=== PATIENT | female | born 1990 | race African-American/Black ===

== ENCOUNTER 2017-12-18 09:22 | Emergency (ER) | payer MEDICAID, SELFPAY ==
[2017-12-18 09:23] VITALS: BP 143/75; PULSE 86; RESP 16; TEMP 37.3; O2SAT 97; BMI 47.3
[2017-12-18] MEDS: 0.9% Normal Saline 1,000 ML 1000 ML IV (10:16)
[2017-12-18 10:26] LABS: Pregnancy, Serum, hCG Quali. NEGATIVE Negative (0-9 Nonpreg)
--- NOTE | 2017-12-18 10:52 | ED.DCSUM_ITS ---
- ER Visit Summary Date of Service: 12/18/17 Chief Complaint: Dehydrated History of Present Illness: The patient is a [address] Lock. She reports that she has vomiting and diarrhea that began 2 days ago. She vomited once. No blood or emesis. She had approximately 10 episodes of diarrhea. No blood in her stools or black tarry stools. She reports that she has not had any diarrhea since 8:00 yesterday morning and this is approximately 29 hours. She denies any abdominal pain. Patient denies sick contacts. Has not been camping out of the country. No possible bad food exposure. Does not drink well water. No recent antibiotic use. Patient reports that today she feels lightheaded. It is worse with standing. She has not passed out. She has a headache that is 3 out of 10 in severity. Physical Examination: Vitals: Stable. Afebrile. General: Well-nourished and well-developed. Head: Normocephalic atraumatic. Neck: Supple, no lymphadenopathy. No JVD. Nontender. Cardiovascular: Regular rate and rhythm. No murmurs. Respiratory: No respiratory distress. Clear to auscultation bilaterally. Abdominal: Soft, nontender, nondistended, normal bowel sounds. No guarding, rebound, or peritoneal signs. Back: Nontender. Extremities: Nontender, no edema. Skin: Normal color, no rash. Neurologic: Alert and oriented ?3. Cranial nerves II through XII are intact. Normal strength and sensation. Psych: Normal affect. Test Results: test is negative. Emergency Department Course and Treatment: Patient had an IV placed. She is given a liter bolus of normal saline. She feels much improved. She refused pain or nausea medications. Treatment Plan: Patient will be discharged instructions to push fluids. Follow- up her primary care physician 1 to days not improving. Return to the emergency department for any worsening symptoms. Disposition: To home in improved and stable condition. Impression: 1. Vomiting/diarrhea. This note was generated with [employer] dictation software. It may contain incorrect words, spelling, and punctuation that were not noted in review of the chart prior to signing ED Disposition - Plan for ED Patient: Chief Complaint: Nausea/Vomiting/Diarrhea Instructions: ED Dehydration Referrals: Juarez Lock DO [Primary Care Provider] - 1-2 Days if not improving
[2017-12-18 11:16] VITALS: PULSE 78; RESP 14; O2SAT 99
== END 2017-12-18 11:17 | disposition home or self-care (01) ==
PROVIDERS: Emergency Provider Emergency Medicine; Family Provider Student in an Organized Health Care Education/Training Program; PCP Student in an Organized Health Care Education/Training Program
DX: R19.7 Diarrhea, unspecified (principal); R11.2 Nausea with vomiting, unspecified
CPT/HCPCS: 84703; 96360; 99284; J7030; A4216

== ENCOUNTER 2019-05-19 19:13 | Emergency (ER) | payer SELFPAY ==
[2019-05-19 19:14] VITALS: BP 142/92; PULSE 88; RESP 15; TEMP 36.9; BMI 46.0
--- NOTE | 2019-05-19 20:08 | ED.DCSUM_ITS ---
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 She reports that she has an abscess on her vaginal vagina that began 3 days ago. She is a sharp, aching pain is 9-10 with movement or walking 2 out of 10 at rest. She denies any constitutional symptoms. No fever, chills, nausea, or vomiting. Physical Examination: Vitals: Stable. Afebrile. General: Well-nourished and well-developed. Head: Normocephalic atraumatic. Neck: Supple, no lymphadenopathy. No JVD. Nontender. Cardiovascular: Regular rate and rhythm. No murmurs. Respiratory: No respiratory distress. Clear to auscultation bilaterally. Abdominal: Soft, nontender, nondistended, normal bowel sounds. No guarding, rebound, or peritoneal signs. : Just to the right of her clitoris there is a 2 cm x 1 cm abscess with spontaneous drainage. Back: Nontender. Extremities: Nontender, no edema. Skin: Normal color, no rash. Neurologic: Alert and oriented ?3. Cranial nerves II through XII are intact. Normal strength and sensation. Psych: Normal affect. Emergency Department Course and Treatment: Patient was treated with Bactrim and Percocet. Treatment Plan: The patient was discussed with Dr. Reza. She states that with spontaneous drainage that an I&D should not be performed at this time. Patient's will be discharged Bactrim and instructed to use hot compresses. Follow-up with Dr. Reza in 2 days letter know if this is continuing to drain. If it does not continue to drain she does understand it may require more formal incision and drainage. Return to the emergency department for any worsening symptoms. Disposition: To home in improved and stable condition. Impression: 1. Abscess right labia minora. This note was generated with [employer] dictation software. It may contain incorrect words, spelling, and punctuation that were not noted in review of the chart prior to signing ED Disposition - Plan for ED Patient: Disposition: Home or Assisted Living Instructions: ABSCESS, Antiobiotic Treatment Only Prescriptions: Smz/Tmp Ds [Bactrim Ds] 1 tab PO BID #14 tab Prescription Printed Oxycodone HCl/Acetaminophen [Percocet 5/325] 1 tab PO Q6H PRN PRN 3 Days #12 tab PRN Reason: Pain Prescription Printed Referrals: Jesus Reza [STAFF PHYSICIAN] - 2 Days for wound check
[2019-05-19] MEDS: Smz/Tmp Ds Tablet 1 TABLET PO (20:14)
[2019-05-19] MEDS: oxyCODONE 5 MG Tablet PO (20:14)
== END 2019-05-19 20:18 | disposition home or self-care (01) ==
LOC: ED 20:09
PROVIDERS: Emergency Provider Emergency Medicine
DX: N76.4 Abscess of vulva (principal); E03.9 Hypothyroidism, unspecified; Z79.899 Other long term (current) drug therapy
CPT/HCPCS: 99283

== ENCOUNTER → 2021-02-26 09:51 | Outpatient (CLI) | payer SELFPAY ==
[2021-02-26 10:57] LABS: Thyroid Stim Hormone (TSH) 4.79 uIU/mL (0.358-3.74)
== END ==
DX: R69 Illness, unspecified (principal)
CPT/HCPCS: 36415; 82306; 84443

== ENCOUNTER → 2021-08-18 09:31 | Outpatient (CLI) | payer MEDICAID, SELFPAY ==
[2021-08-18 11:16] LABS: Vitamin D,25 Hydroxy 75.8 ng/mL
[2021-08-18 11:19] LABS: Cholesterol 138 mg/dL (200); High Density Lipoprotein 56 mg/dL; Thyroid Stim Hormone (TSH) 2.47 uIU/mL (0.358-3.74); Triglycerides 85 mg/dL; Very Low Density Lipoprotein 17 mg/dL (5-40)
== END ==
PROVIDERS: Referring Provider Nurse Practitioner Adult Health; Visit Provider Nurse Practitioner Adult Health
DX: E03.9 Hypothyroidism, unspecified (principal)
CPT/HCPCS: 36415; 80061; 82306; 84443

== ENCOUNTER → 2021-09-08 10:40 | Outpatient (CLI) | payer MEDICAID, SELFPAY ==
--- NOTE | 2021-09-08 10:43 | US_ITS ---
STUDY: THYROID ULTRASOUND REASON FOR EXAM: Female, 31 years old. HYPOTHYROIDISM TECHNIQUE: Ultrasound evaluation of the thyroid was performed with real-time and static cardona-scale imaging. COMPARISON: None. FINDINGS: RIGHT LOBE: The right lobe of the thyroid gland measures 4.6 x 1.3 x 1.3 cm. There is a homogeneous echotexture. There are no demonstrated solid, cystic or complex lesions. LEFT LOBE: The left lobe of the thyroid gland measures 4.2 x 1.4 x 1.2 cm. There is a homogeneous echotexture. There are no demonstrated solid, cystic or complex lesions. ISTHMUS: The isthmus measures 0.3 cm. The regional lymph nodes are normal. US/Thyroid IMPRESSION: Normal ultrasound examination of the thyroid. Electronically Signed: Maximo Kay MD at 14:30 EST , Service support ,
--- NOTE | 2021-09-08 10:43 | EKG12_ITS ---
Test Reason : ROUTINE Blood Pressure : / mmHG Vent. Rate : 064 BPM Atrial Rate : 064 BPM P-R Int : 166 ms QRS Dur : 078 ms QT Int : 414 ms P-R-T Axes : 044 034 047 degrees QTc Int : 427 ms Normal sinus rhythm Normal ECG Confirmed by TAMAR SAUCEDA, MARGUERITE ([id number]), editor department CHAYITO REYES ([id number]) on 09/09/2021 9:36:49 AM Referred By: Shraddha Raines Confirmed By:MARGUERITE BOYLE MD
== END ==
PROVIDERS: Referring Provider Nurse Practitioner Adult Health; Visit Provider Nurse Practitioner Adult Health
DX: R00.2 Palpitations (principal)
CPT/HCPCS: 76536; 93005

== ENCOUNTER 2021-12-31 10:23 | Outpatient (CLI) | payer MEDICAID, SELFPAY ==
[2021-12-31 12:16] LABS: ALB/GLOB Ratio 0.8 RATIO (0.9-2.4); AST(SGOT) 14 U/L (15-37); Alanine Aminotransfer ALT/SGPT 16 U/L (13-56); Albumin, Serum 3.6 g/dL (3.2-5.0); Alkaline Phosphatase 73 U/L (45-117); Anion Gap 6 (5-15); BUN 6 mg/dL (7-18); BUN/Creat Ratio 5.4 RATIO (10-20); Calcium,Total 9.1 mg/dL (8.5-10.1); Chloride 106 mmol/L (98-107); Creatinine, Serum 1.11 mg/dL (0.55-1.02); EST Glomerular Filtration Rate 60 mL/min (>60); Est Glom Filt Rate - Afr Amer 73 mL/min (>60); Globulin 4.5 g/dL (2.2-4.2); Glucose 83 mg/dL (74-106); Potassium 3.5 mmol/L (3.5-5.1); Protein, Total 8.1 g/dL (6.4-8.2); Sodium Level 137 mmol/L (136-145); Thyroid Stim Hormone (TSH) 1.12 uIU/mL (0.358-3.74)
== END 2021-12-31 23:59 | disposition home or self-care (01) ==
LOC: LAB 10:25
PROVIDERS: Referring Provider Nurse Practitioner Adult Health; Visit Provider Nurse Practitioner Adult Health
DX: E03.9 Hypothyroidism, unspecified (principal)
CPT/HCPCS: 36415; 80053; 84443

== ENCOUNTER → 2022-04-23 | Outpatient (CLI) | payer MEDICAID, SELFPAY ==
[2022-04-23 14:01] LABS: Hemoglobin A1c 5.5 % (3.8-5.6)
[2022-04-23 14:09] LABS: Insulin 19.4 mU/L (2.6-37.6)
[2022-04-23 14:13] LABS: Thyroid Stim Hormone (TSH) 2.41 uIU/mL (0.358-3.74)
== END | disposition home or self-care (01) ==
LOC: LAB 12:53
DX: E03.9 Hypothyroidism, unspecified (principal); F33.1 Major depressive disorder, recurrent, moderate
CPT/HCPCS: 36415; 83036; 83525; 84443

== ENCOUNTER → 2022-11-08 | Outpatient (CLI) | payer MEDICAID, SELFPAY ==
[2022-11-08 15:50] LABS: ALB/GLOB Ratio 0.7 RATIO (0.9-2.4); AST(SGOT) 13 U/L (15-37); Alanine Aminotransfer ALT/SGPT 20 U/L (13-56); Albumin, Serum 3.6 g/dL (3.2-5.0); Alkaline Phosphatase 87 U/L (45-117); Anion Gap 4 (5-15); BUN 11 mg/dL (7-18); BUN/Creat Ratio 10.9 RATIO (10-20); Calcium,Total 9.3 mg/dL (8.5-10.1); Chloride 103 mmol/L (98-107); Creatinine, Serum 1.01 mg/dL (0.55-1.02); EST Glomerular Filtration Rate 67 mL/min (>60); Est Glom Filt Rate - Afr Amer 81 mL/min (>60); Globulin 4.9 g/dL (2.2-4.2); Glucose 76 mg/dL (74-106); Potassium 3.7 mmol/L (3.5-5.1); Protein, Total 8.5 g/dL (6.4-8.2); Sodium Level 136 mmol/L (136-145); T4 Free Direct 1.07 ng/dL (0.76-1.46); Thyroid Stim Hormone (TSH) 3.56 uIU/mL (0.358-3.74)
== END | disposition home or self-care (01) ==
LOC: LAB 14:07
PROVIDERS: Referring Provider Nurse Practitioner Family; Visit Provider Nurse Practitioner Family
DX: E03.9 Hypothyroidism, unspecified (principal)
CPT/HCPCS: 36415; 80053; 84439; 84443

== ENCOUNTER → 2022-12-20 | Outpatient (CLI) | payer MEDICAID, SELFPAY ==
[2022-12-20 13:10] LABS: Follicle Stimulating Hormone 3.6 mIU/mL; Prolactin 69.8 ng/mL
[2022-12-24 13:31] LABS: HPV APTIMA, High Risk Negative (Negative)
== END | disposition home or self-care (01) ==
LOC: WOBLAB 11:56
PROVIDERS: Visit Provider Student in an Organized Health Care Education/Training Program
DX: N93.9 Abnormal uterine and vaginal bleeding, unspecified (principal); Z12.4 Encounter for screening for malignant neoplasm of cervix
CPT/HCPCS: 36415; 83001; 83002; 84146; 87624; 88175; G0145

== ENCOUNTER → 2023-02-02 | Outpatient (CLI) | payer MEDICAID, SELFPAY ==
[2023-02-02 13:11] LABS: Prolactin 14.5 ng/mL
== END | disposition home or self-care (01) ==
LOC: LABSPEC 11:42
PROVIDERS: Visit Provider Student in an Organized Health Care Education/Training Program
DX: N93.9 Abnormal uterine and vaginal bleeding, unspecified (principal)
CPT/HCPCS: 84146

== ENCOUNTER → 2023-12-08 | Outpatient (CLI) | payer MEDICAID, SELFPAY ==
[2023-12-08 10:05] LABS: Absolute Lymphocyte Count 2.57 X10^3/uL (0.83-4.51); Absolute Neutrophil Count 7.3 X10^3/uL (2.0-7.7); Basophil# 0.05 X10^3/uL; Basophil% 0.5 % (0-1); Eosinophil# 0.07 X10^3/uL; Eosinophils% 0.7 % (0-5); Hematocrit 41.4 % (37-47); Hemoglobin 13.6 g/dL (12.0-15.0); Lymphocyte # 2.57 X10^3/ul (0.83-4.51); Lymphocyte % 24.5 % (19-41); Mean Corp Hgb Conc 32.9 g/dL (32-36); Mean Corpuscular Hgb 27.7 pg (27.0-32.0); Mean Corpuscular Volume 84.3 fL (81-99); Mean Platelet Vol. 9.5 fl (6.2-12.0); Monocyte# 0.45 X10^3/uL; Monocyte% 4.3 % (0-10); NRBC Flagged by Analyzer 0 % (0-5); Neutrophil # 7.32 X10^3/uL (2.7-7.7); Neutrophil % 69.8 % (47-70); Platelet Count 357 K/mm3 (150-450); RBC Distribution Width CV 13.2 % (11.6-14.6); RBC Distribution Width SD 40.9 fl (35.1-43.9); Red Blood Count 4.91 M/mm3 (4.2-5.4); White Blood Count 10.5 K/mm3 (4.4-11.0)
[2023-12-08 10:54] LABS: ALB/GLOB Ratio 0.7 RATIO (0.9-2.4); AST(SGOT) 15 U/L (15-37); Alanine Aminotransfer ALT/SGPT 12 U/L (13-56); Albumin, Serum 3.5 g/dL (3.2-5.0); Alkaline Phosphatase 104 U/L (45-117); Anion Gap 7 (5-15); BUN 8 mg/dL (7-18); BUN/Creat Ratio 7.4 RATIO (10-20); Calcium,Total 9.4 mg/dL (8.5-10.1); Chloride 105 mmol/L (98-107); Cholesterol 146 mg/dL (200); Creatinine, Serum 1.08 mg/dL (0.55-1.02); EST Glomerular Filtration Rate 62 mL/min (>60); Est Glom Filt Rate - Afr Amer 75 mL/min (>60); Glucose 97 mg/dL (74-106); High Density Lipoprotein 48 mg/dL; Iron 41 ug/dL (50-170); Iron Binding Capacity,Total 309 ug/dL (250-450); PERCENT IRON SATURATION 13.3 % (15.0-55.0); Protein, Total 8.5 g/dL (6.4-8.2); Sodium Level 136 mmol/L (136-145); Thyroid Stim Hormone (TSH) 4.19 uIU/mL (0.358-3.74); Triglycerides 74 mg/dL; Very Low Density Lipoprotein 15 mg/dL (5-40)
[2023-12-08 11:10] LABS: Hemoglobin A1c 5.8 % (3.8-5.6)
== END | disposition home or self-care (01) ==
LOC: LAB 09:50
DX: R73.03 Prediabetes (principal); E03.9 Hypothyroidism, unspecified; E66.9 Obesity, unspecified; G47.00 Insomnia, unspecified
CPT/HCPCS: 36415; 80053; 80061; 83036; 83540; 83550; 84439; 84443; 85025

== ENCOUNTER 2024-03-26 07:14 | Day surgery (SDC) | payer MEDICAID, SELFPAY ==
--- NOTE | 2024-03-26 07:27 | H&P.OPEN ---
HPI - General General Date of Service: 03/26/24 HPI Narrative GENO MALLORY, is a 33 F who presents for an EGD. Patient denies any symptoms of reflux on the omeprazole. No other changes. HPI HPI: 33 y/o F presents due to gerd for EGD. Pt has never had EGD. Pt has been on omeprazole but not always daily since March 2023, pepcid/tums prn. Pt symptoms are acidic taste/burning up esophagus, denies abd pain. Pt has hx of IBS occasionally with abd cramping after eating per pt. Pt does state depending on what she eats she may have symptoms even with the omeprazole [facility] Medical History (Updated 03/26/24 @ 07:[address] Hanna Coles MD) Wears glasses Depression Anxiety Marijuana use Alcohol use Thyroid disease Arthritis Anemia Restless legs Back pain Migraine headache Seizures History of IBS Gastric reflux Asthma Home Medications ?Medication ?Instructions ?Recorded ?Last Taken ?Type citalopram 10 mg tablet 20 mg PO DAILY 12/30/23 Unknown History diphenhydramine HCl 25 mg capsule 25 mg PO DAILY 12/30/23 Unknown History (Allergy Relief (diphenhydramine)) levothyroxine 75 mcg tablet 75 mcg PO DAILY 12/30/23 Unknown History lisdexamfetamine 20 mg capsule 20 mg PO DAILY 12/30/23 Unknown History (Vyvanse) lurasidone 20 mg tablet 20 mg PO DAILY 12/30/23 Unknown History omeprazole 40 mg capsule,delayed 40 mg PO QDAY #30 caps 12/30/23 Unknown Rx release albuterol sulfate 90 mcg/actuation 2 puff inhalation Q4H PRN PRN 03/21/24 Unknown History aerosol inhaler shortness of breath or wheezing gabapentin 300 mg capsule 300 mg PO QHS 03/21/24 Unknown History Allergy/AdvReac Type Severity Reaction Status Date / Time No Known Allergies Allergy Verified 03/26/24 07:28 Surgical History (Updated 12/30/23 @ 12:51 by Miladis Santos LPN) H/O right inguinal hernia repair H/O excision of ganglion cyst Social History (Updated 12/30/23 @ 12:52 by Miladis Santos LPN) Smoking Status: Never smoker alcohol intake: never substance use type: marijuana and other details: edibles Past Medical/Surgical History Planned Operation Planned Operative Procedure(s): EGD Previous Hospitalizations/Surgeries HX Hospitalizations: No Any Problems With Anesthesia: No You/Your Family Experience Fever (Hyperthermia) With Anes: No Cholinesterase deficiency: No Cardiovascular Hx Hypertension: No Respiratory Hx Sleep Apnea: No Hx Respiratory Tract Infection/Cold (presently): No Do You Snore Loudly (louder than talking or can be heard): No Do You Often Feel Tired/ Fatigued/ Sleepy Dring Daytime?: No Has Anyone Observed You Stop Breathing During Sleep?: No Result (for STOP score): Negative Smoking Status: Never smoker Neurological Does patient have nerve stimulator: No Reproduction : No Allergies No Known Allergies Allergy (Verified 03/26/24 07:28) Discharge Is Pt Admitted From a [facility], or a Skilled Nursing: No After D/C, Where Do you Plan to Go: Return Home Physical Exam Const alert, oriented x3 and no apparent distress HEENT normocephalic and head/scalp atraumatic Resp normal respiratory effort Cardio regular rate GI soft to palpation and non-tender; Negative for non-distended Palpation: Negative for guarding Extremity no clubbing, cyanosis or edema Skin no rashes or lesions noted Neuro CN's II-XII intact bilaterally Psych mental status grossly normal Assessment & Plan Assessment/Plan (1) Gastric reflux: Surgery Risks - Colonoscopy I discussed with the patient the risks of the procedure: Yes Risks Include but are not Limited To: Plan for an EGD risks include but are not limited to: Bleeding, perforation requiring further surgery
[2024-03-26 07:28] VITALS: BP 123/89; PULSE 78; RESP 16; TEMP 36.6; O2SAT 100; BMI 53.4
[2024-03-26] MEDS: Lactated Ringers 1,000 ML 15 ML IV (07:30)
[2024-03-26 08:04] LABS: Internal QC Validated? YES +Cl - CLEAR BKGD; Pregnancy, Serum, hCG Quali. NEGATIVE Negative; Record Kit Lot#, Serum Preg. 735774
--- NOTE | 2024-03-26 08:29 | OP.EGD_ITS ---
Patient Name: Radha Edouard Procedure Date: 03/26/2024 8:09 AM Date of : 1990 Age: 33 Procedure: Upper GI endoscopy Indications: Heartburn Providers: Hanna Coles MD Referring MD: Hanna Coles MD Medicines: Monitored Anesthesia Care Patient Profile: This is a 33 year old female. Complications: No immediate complications. Procedure: Pre-Anesthesia Assessment: - Prior to the procedure, a History and Physical was performed, and patient medications and allergies were reviewed. The patient's tolerance of previous anesthesia was also reviewed. The risks and benefits of the procedure and the sedation options and risks were discussed with the patient. All questions were answered, and informed consent was obtained. Prior Anticoagulants: The patient has taken no anticoagulant or antiplatelet agents. ASA Grade Assessment: Per anesthesia. After reviewing the risks and benefits, the patient was deemed in satisfactory condition to undergo the procedure. After obtaining informed consent, the endoscope was passed under direct vision. Throughout the procedure, the patient's blood pressure, pulse, and oxygen saturations were monitored continuously. The gastroscope was introduced through the mouth, and advanced to the second part of duodenum. The upper GI endoscopy was accomplished without difficulty. The patient tolerated the procedure well. Scope In: 8:22:46 AM Scope Out: 8:25:12 AM Total Procedure Duration Time 0 hours 2 minutes 26 seconds Findings: The Z-line was variable and was found 40 cm from the incisors. Striped mildly erythematous mucosa without bleeding was found in the gastric antrum. Biopsies were taken with a cold forceps for histology. Biopsies were taken with a cold forceps for Helicobacter pylori cultures. The examined duodenum was normal. The cardia and gastric fundus were normal on retroflexion. Impression: - Z-line variable, 40 cm from the incisors. - Erythematous mucosa in the antrum. Biopsied. - Normal examined duodenum. Recommendation: - Await pathology results. - Discharge patient to home. - Resume previous diet. - Continue present medications. Procedure Code(s): --- Professional --- 47951, Esophagogastroduodenoscopy, flexible, transoral; with biopsy, single or multiple Diagnosis Code(s): --- Professional --- K22.89, Other specified disease of esophagus K31.89, Other diseases of stomach and duodenum R12, Heartburn CPT copyright 2021 [employer]. All rights reserved. The codes documented in this report are preliminary and upon hanging flags decorator review may be revised to meet current compliance requirements. MD Hanna Nascimento MD 03/26/2024 8:28:45 AM This report has been signed electronically. Number of Addenda: 0 Note Initiated On: 03/26/2024 8:09 AM
--- NOTE | 2024-03-26 08:29 | OP.CCLET_ITS ---
03/26/2024 Kriss Blanco [facility] Re : Upper GI endoscopy procedure for Radha Edouard [facility] This procedure was performed on Tuesday, March 26, 2024. My impressions and recommendations are as follows: Impressions : - Z-line variable, 40 cm from the incisors. - Erythematous mucosa in the antrum. Biopsied. - Normal examined duodenum. Recommendations : - Await pathology results. - Discharge patient to home. - Resume previous diet. - Continue present medications. My findings are described in the full procedure note, which is enclosed. If I can be of further assistance, please feel free to contact me at Doctor phone number(s): , Work: . Sincerely, MD Hanna Nascimento MD 03/26/2024 8:28:45 AM This report has been signed electronically.
[2024-03-26 08:30] VITALS: BP 112/83; BP 123/89; PULSE 78; RESP 16; TEMP 36.4; O2SAT 98
--- NOTE | 2024-03-26 08:30 | IMM_PTH ---
PATIENT: GENO MALLORY LOC: EN U#:[id number] AGE/SX: 33/F ROOM: RE03/26/[address]: Dr. Hanna Coles MD : 1990 BED: DIS: 03/26/2024 SPEC #: [id number] RECD: 03/26/24 11:30 STATUS: ANYI REJazz #: [id number] MOE: 03/26/24 08:[address]: Hanna Coles DEPT: IMMUNOHISTOCHEMISTRY RECD BY: Delbert Terrell ENTERED: 03/26/24 11:30 SP TYPE: IMMUNO OTHR DR: [facility] Tissues: Gastric mucous membrane Procedures: H Pylori (initial) PHYSICIAN & INSTITUTION [place] [id number] SPECIMEN INFORMATION: Tissue Source: Gastric antrum biopsy Clinical Info: Reflux Specimen Number: [id number] CPT code: 15932 METHODOLOGY: Deparaffinized sections of prefer/formalin-fixed tissue or PAP/DQ stained slides are incubated with monoclonal/polyclonal antibodies/oligonucleotide probes. Localization is made via biotin free immunoperoxidase method. Appropriate controls are performed and reacted as expected. Results on target cell population are indicated in the following table: RESULTS: ANTIBODY / CLONE RESULT H Pylori (polyclonal) negative These tests were developed and their performance characteristics determined by [facility]. They may not have been cleared or approved by the U.S. Food and Drug Administration. The FDA has determined that such clearance or approval is not necessary. The above immunohistochemical/dualISH markers are ordered and reviewed by the Pathologist. INTERPRETATION: Gastric antrum, biopsy: Negative for Helicobacter pylori organisms. LYNETTE/ 03/27/2024
--- NOTE | 2024-03-26 08:30 | EGD_PTH ---
PATIENT: GENO MALLORY LOC: EN U#:[id number] AGE/SX: 33/F ROOM: RE03/26/[address]: Dr. Hanna Coles MD : 1990 BED: DIS: 03/26/2024 SPEC #: [id number] RECD: 03/26/24 10:18 STATUS: ANYI AKBAR #: [id number] MOE: 03/26/24 08:[address]: Hanna Coles DEPT: SURGICAL PATHOLOGY RECD BY: Lyly Griffin ENTERED: 03/26/24 11:41 SP TYPE: EGD BIOPSY OT DR: Kriss [facility] Tissues: Stomach, NOS Procedures: Surgery Specimen Level IV HEADER OPERATION: EGD with biopsy PRE-OP DIAGNOSIS: Reflux TISSUE SUBMITTED: Antrum biopsy MICROSCOPIC DIAGNOSIS Antrum, biopsy: Mild gastritis. See microscopic description and comment. LYNETTE/ 03/27/2024 COMMENT The results of immunohistochemistry for Helicobacter pylori will be reported separately ([id number]). MICROSCOPIC DESCRIPTION Slides are reviewed. The specimen shows fragments of gastric mucosa with chronic inflammatory cell infiltrates in the lamina propria consisting of lymphocytes and plasma cells, consistent with mild chronic gastritis. GROSS DESCRIPTION Received in fixative is one container labeled with the patient's name and designated Antrum biopsy. The specimen consists of one irregular fragment of light galvez soft tissue that measures 0.3 x 0.2 x 0.1 cm. The specimen is totally submitted in one cassette. LYNETTE/ 03/26/24 TC:3 CPT:48353
[2024-03-26 08:35] VITALS: BP 112/87; BP 123/89; PULSE 81; RESP 16; O2SAT 98
[2024-03-26 08:40] VITALS: BP 119/90; BP 123/89; PULSE 73; RESP 16; O2SAT 98
[2024-03-26 08:45] VITALS: BP 115/89; BP 123/89; PULSE 68; RESP 16; TEMP 36.3
[2024-03-26 08:55] VITALS: BP 123/89
== END 2024-03-26 09:04 | disposition home or self-care (01) ==
LOC: EN 07:14 → AC 07:16
PROVIDERS: Anesthesiology; Referring Provider Surgery; Visit Provider Surgery
PROC: 0DJ08ZZ Inspection of Upper Intestinal Tract, Via Natural or Artificial Opening Endoscopic (ICD-10-PCS; CPT 43235; principal; 2024-03-26 08:25)
DX: K21.9 Gastro-esophageal reflux disease without esophagitis (principal); E07.9 Disorder of thyroid, unspecified; F32.A Depression, unspecified; F41.9 Anxiety disorder, unspecified; Z79.899 Other long term (current) drug therapy; K31.89 Other diseases of stomach and duodenum
CPT/HCPCS: 43239; 84703; 88305; 88342; J7120; J2405

== ENCOUNTER → 2024-05-31 | Outpatient (CLI) | payer MEDICAID, SELFPAY ==
--- NOTE | 2024-05-31 16:21 | CT_ITS ---
STUDY: CT ABDOMEN AND PELVIS WITH CONTRAST REASON FOR EXAM: Female, 33 years old. RLQ PAIN RADIATION DOSAGE (If Supplied By Facility): CTDIvol = ( 15.41 ) mGy, DLP = ( 1232.55 ) mGycm TECHNIQUE: Oral and amp; IV Readi-CAT and amp; 100mL Isovue-300 was administered. Transaxial images were obtained from the dome of the diaphragm to the symphysis pubis in the portal venous phase. Multiplanar coronal and sagittal images were reformatted. Individualized Dose Optimization Techniques Were Used For This CT. COMPARISON: No relevant prior comparison study available FINDINGS: LOWER CHEST: Lung bases are clear. No cardiomegaly or pericardial effusion. LIVER: The liver is normal in size, shape, and attenuation. No focal mass. GALLBLADDER AND BILIARY TREE: The gallbladder is normally distended. No gallstones. No gallbladder wall thickening or edema. No pericholecystic fluid. No intra- or extrahepatic biliary ductal dilation. PANCREAS: No focal cystic or solid mass. SPLEEN: Normal size without focal cystic or solid mass. ADRENAL GLANDS: No nodules. KIDNEYS AND URETERS: Normal renal size and position. No hydronephrosis or nephrolithiasis. PERITONEUM: No ascites or free air. No other fluid collection. BOWEL: The stomach is unremarkable. Normal caliber small bowel. There is no obstruction. No colonic wall thickening or inflammation. No evidence of acute appendicitis. LYMPH NODES: No enlarged mesenteric or retroperitoneal lymph nodes. VESSELS: Aorta is non-dilated. URINARY BLADDER: Unremarkable. REPRODUCTIVE ORGANS: Anteverted uterus with IUD in place. No adnexal mass. Dominant right ovarian follicle measures 2 cm. ABDOMINAL WALL: No discrete abdominal or pelvic wall hernia. BONES: No lytic or blastic abnormality. CT/Abdomen/Pelvis WITH Contrast IMPRESSION: No acute finding in the abdomen or pelvis. No inflammatory changes. Normal appendix. No pelvic mass. Dominant right ovarian follicle. No specific follow-up recommended. Electronically Signed: Hola Doty MD at 13:38 EDT ,
== END | disposition home or self-care (01) ==
LOC: CT 16:18
PROVIDERS: Referring Provider Nurse Practitioner Family; Visit Provider Nurse Practitioner Family
DX: R10.31 Right lower quadrant pain (principal)
CPT/HCPCS: 74177; Q9967

== ENCOUNTER → 2024-08-14 | Outpatient (CLI) | payer MEDICAID, SELFPAY ==
[2024-08-14 17:09] LABS: Absolute Lymphocyte Count 2.65 X10^3/uL (0.83-4.51); Absolute Neutrophil Count 6.8 X10^3/uL (2.0-7.7); Basophil# 0.05 X10^3/uL; Basophil% 0.5 % (0-1); Eosinophil# 0.13 X10^3/uL; Eosinophils% 1.3 % (0-5); Hematocrit 44.6 % (37-47); Hemoglobin 14.5 g/dL (12.0-15.0); Lymphocyte # 2.65 X10^3/ul (0.83-4.51); Lymphocyte % 26.7 % (19-41); Mean Corp Hgb Conc 32.5 g/dL (32-36); Mean Corpuscular Hgb 28.9 pg (27.0-32.0); Mean Platelet Vol. 9.4 fl (6.2-12.0); Monocyte# 0.33 X10^3/uL; Monocyte% 3.3 % (0-10); NRBC Flagged by Analyzer 0 % (0-5); Neutrophil # 6.75 X10^3/uL (2.7-7.7); Platelet Count 344 K/mm3 (150-450); RBC Distribution Width CV 13.2 % (11.6-14.6); RBC Distribution Width SD 42.9 fl (35.1-43.9); Red Blood Count 5.01 M/mm3 (4.2-5.4); White Blood Count 9.9 K/mm3 (4.4-11.0)
[2024-08-14 17:19] LABS: Vitamin D,25 Hydroxy 73.9 ng/mL
[2024-08-14 17:22] LABS: Hemoglobin A1c 5.6 % (3.8-5.6)
[2024-08-14 17:26] LABS: ALB/GLOB Ratio 0.7 RATIO (0.9-2.4); AST(SGOT) 15 U/L (15-37); Alanine Aminotransfer ALT/SGPT 21 U/L (13-56); Albumin, Serum 3.5 g/dL (3.2-5.0); Alkaline Phosphatase 89 U/L (45-117); Anion Gap 8 (5-15); BUN 10 mg/dL (7-18); BUN/Creat Ratio 8.8 RATIO (10-20); Calcium,Total 9.8 mg/dL (8.5-10.1); Chloride 103 mmol/L (98-107); Cholesterol 150 mg/dL (200); Creatinine, Serum 1.14 mg/dL (0.55-1.02); EST Glomerular Filtration Rate 58 mL/min (>60); Est Glom Filt Rate - Afr Amer 70 mL/min (>60); Globulin 5.1 g/dL (2.2-4.2); Glucose 112 mg/dL (74-106); High Density Lipoprotein 44 mg/dL; Iron 57 ug/dL (50-170); Iron Binding Capacity,Total 323 ug/dL (250-450); PERCENT IRON SATURATION 17.6 % (15.0-55.0); Potassium 3.7 mmol/L (3.5-5.1); Protein, Total 8.6 g/dL (6.4-8.2); Sodium Level 135 mmol/L (136-145); T4 Free Direct 1.04 ng/dL (0.76-1.46); Triglycerides 121 mg/dL; Very Low Density Lipoprotein 24 mg/dL (5-40)
== END | disposition home or self-care (01) ==
LOC: VSLAB 15:04
PROVIDERS: Referring Provider Nurse Practitioner Family; Visit Provider Nurse Practitioner Family
DX: E03.9 Hypothyroidism, unspecified (principal); E66.9 Obesity, unspecified; R73.03 Prediabetes; E61.1 Iron deficiency; E55.9 Vitamin D deficiency, unspecified
CPT/HCPCS: 36415; 80053; 80061; 82306; 83036; 83540; 83550; 84439; 84443; 85025